=== PATIENT | female | born 1955 | race Caucasian/White ===

== ENCOUNTER 2023-11-09 18:15 | Emergency (ER) | payer MEDICARE, OTHER ==
[~2023-11-09] VITALS: Ht 170.2 cm; Wt 133.8 kg
[2023-11-09 19:30] VITALS: TEMP 97.9
[2023-11-09] MEDS ORDERED: HYDROCODONE/APAP 5/325MG TABLET ONE (20:33)
[2023-11-09] MEDS: HYDROCODONE/APAP 5/325MG TABLET PO ONE (20:38)
[2023-11-09] MEDS ORDERED: HYDR-4303 PO (20:41)
[2023-11-09 20:53] VITALS: BP 139/82; O2SAT 100
== END 2023-11-09 20:53 | disposition home or self-care (01) ==
LOC: ER 18:15
DX: S52.515A Nondisplaced fracture of left radial styloid process, initial encounter for closed fracture (principal); I48.91 Unspecified atrial fibrillation; W01.0XXA Fall on same level from slipping, tripping and stumbling without subsequent striking against object, initial encounter; Y93.89 Activity, other specified; Y92.89 Other specified places as the place of occurrence of the external cause; Y99.8 Other external cause status
CPT/HCPCS: 73080-TC; 73110